=== PATIENT | female | born 1950 | race Caucasian/White ===

== ENCOUNTER 2017-10-06 15:01 | Emergency (ER) | payer MEDICARE, MEDICAID ==
--- NOTE | 2017-10-06 15:07 | ED PDOC ---
Arrival/HPI - General Time Seen by Provider: 10/06/17 15:06 Historian: Patient - History of Present Illness Narrative History of Present Illness (Text): 10/06/17 15:06 67 y/o female, pmh including htn/hyperlipidemia/hypothyroidism/gerd/lower back surgery, nkda, c/o lower back pain and left elbow pain s/p fall about 1 hour ago. Pt. stated that she was getting out of her car, tripped over uneven curb, landed on the left elbow and lower back, walking on the scene, no numbness or tingling, no urinary or bowel incontinence or retention, no flank pain, no hematuria, no night sweat, no rash, no other medical or psychological complaints. Past Medical History - Provider Review Nursing Documentation Reviewed: Yes Family/Social History - Physician Review Nursing Documentation Reviewed: Yes Family/Social History: Unknown Family HX Allergies/Home Meds Allergies/Adverse Reactions: Allergies FISH Allergy (Verified 10/06/17 15:10) SHORTNESS OF BREATH shrimp Allergy (Verified 10/06/17 15:10) SHORTNESS OF BREATH dairy Allergy (Uncoded 10/06/17 15:10) SHORTNESS OF BREATH Home Medications: Home Meds Medication Instructions Recorded Confirmed Aspirin [Ecotrin] 1 tab PO DAILY 10/06/17 10/06/17 Diclofenac Sodium [Voltaren] 1 appl TOP DAILY 10/06/17 10/06/17 Fluticasone Propionate [Flovent 1 puff IH DAILY 10/06/17 10/06/17 Diskus] Hydrocortisone [Procto-Med Hc] 1 appl RC DAILY 10/06/17 10/06/17 Levothyroxine [Synthroid] 1 tab PO DAILY 10/06/17 10/06/17 Metoprolol Succinate [Toprol Xl] 1 tab PO DAILY 10/06/17 10/06/17 Pantoprazole Sodium [Protonix] 1 tab PO DAILY 10/06/17 10/06/17 Simvastatin [Simvastatin] 1 tab PO DAILY 10/06/17 10/06/17 amLODIPine [Norvasc] 1 tab PO DAILY 10/06/17 10/06/17 Review of Systems - Review of Systems Constitutional: absent: Fatigue, Fevers Eyes: absent: Vision Changes ENT: absent: Hearing Changes Respiratory: absent: SOB, Cough Cardiovascular: absent: Chest Pain Gastrointestinal: absent: Abdominal Pain, Nausea, Vomiting Musculoskeletal: Arthralgias, Back Pain, Myalgias. absent: Neck Pain, Joint Swelling Skin: absent: Rash, Pruritis, Skin Lesions Psychiatric: absent: Anxiety, Depression, Suicidal Ideation Physical Exam Vital Signs Reviewed: Yes Vital Signs Temp Pulse Resp BP Pulse Ox 10/06/17 15:18 97.5 F L 73 18 131/70 98 Temperature: Afebrile Blood Pressure: Normal Pulse: Regular Respiratory Rate: Normal Appearance: Positive for: Well-Appearing, Non-Toxic, Comfortable Pain Distress: Mild Mental Status: Positive for: Alert and Oriented X 3 - Systems Exam Head: Present: Atraumatic, Normocephalic Pupils: Present: PERRL Extroacular Muscles: Present: EOMI Conjunctiva: Present: Normal Ears: Present: NORMAL TM, Normal Canal. No: Erythema Mouth: Present: Moist Mucous Membranes Pharnyx: No: ERYTHEMA, TONSILS ENLARGED Nose (External): Present: Atraumatic. No: Abrasion, Contusion, Laceration, Lesions Nose (Internal): Present: Normal Inspection, No Active Bleeding. No: Rhinorrhea , Septal Hematoma, Epistaxis Neck: Present: Normal Range of Motion, Trachea Midline. No: Meningeal Signs, MIDLINE TENDERNESS, Paraspinal Tenderness, Lymphadenopathy Respiratory/Chest: Present: Clear to Auscultation, Good Air Exchange. No: Respiratory Distress, Accessory Muscle Use Cardiovascular: Present: Regular Rate and Rhythm, Normal S1, S2. No: Murmurs Abdomen: Present: Normal Bowel Sounds. No: Tenderness, Distention, Peritoneal Signs Back: Present: Normal Inspection, Other (LS spine: no midline tenderness or step off noted, visible surgical scar non-infected noted on the bialteral paraspinal region, no ecchymosis, no abrasion or laceration, FROM without limitation, sensation intact, motor 5/5, SLR test negative. ). No: CVA Tenderness, Midline Tenderness, Paraspinal Tenderness, Pain with Leg Raise, Decubitus Ulcer Upper Extremity: Present: Normal Inspection, Other (Lt. elbow: no tenderness or swelling, skin intact, no laceration or abrasion, FROM without limitation, sensation intact, motor 5/5, +radial pulse, capillary refill< 2 seconds, neurovascular intact. ). No: Cyanosis, Edema Lower Extremity: Present: Normal Inspection. No: Edema Neurological: Present: GCS=15, CN II-XII Intact, Speech Normal Skin: Present: Warm, Dry, Normal Color. No: Rashes Psychiatric: Present: Alert, Oriented x 3, Normal Insight, Normal Concentration Medical Decision Making ED Course and Treatment: 10/06/17 15:35 -Lt. elbow and LS spine xray -Tylenol -observe and reassess 10/06/17 16:37 -LS spine xray: +degenerative changes, no acute fracture or subluxation. -Lt. elbow: no fracture or dislocation -Pain decreased, walking with normal gait and posture. -Discharge home with ashleigh wrap, acetaminophen, lidoderm patch, follow up with your own pmd and orthopedic within 2 days, return to the ER for any new or worsening signs or symptoms. - RAD Interpretation Radiology Orders: 10/06/17 15:32 ELBOW LEFT 3 VIEWS ROUTINE [RAD] Stat LS SPINE WITH OBL > 18 YRS OLD [RAD] Stat LS spine xray: Lt. elbow xray: Product Tester: Radiologist - Medication Orders Current Medication Orders: Discontinued Medications Acetaminophen (Tylenol 325mg Tab) 650 mg PO STAT STA Stop: 10/06/17 15:33 Last Admin: 10/06/17 16:16 Dose: 650 mg MAR Pain/Vitals Document 10/06/17 16:16 OCS (Rec: 10/06/17 16:17 OCS [id number]) Pain Reassessment Is This A Pain ReAssessment? Yes Sleep Is patient sleeping during reassessment? No Presence of Pain Presence of Pain Yes Location Pain Location Body Site Back Description Constant Intensity 7 Scale Used Numeric Aggravating Factors ADL's - PA / ECG TECHNICIAN / Resident Statement MD/DO has reviewed & agrees with the documentation as recorded. Disposition/Present on Arrival - Present on Arrival Any Indicators Present on Arrival: No History of DVT/PE: No History of Uncontrolled Diabetes: No Urinary Catheter: No History of Decub. Ulcer: No - Disposition Have Diagnosis and Disposition been Completed?: Yes Diagnosis: Accidental fall, Low back pain, Elbow pain, Degenerative joint disease (DJD) of lumbar spine Disposition: HOME/ ROUTINE Disposition Time: 16:40 Patient Plan: Discharge Condition: GOOD Additional Instructions: -Discharge home with ashleigh wrap, acetaminophen, lidoderm patch, follow up with your own pmd and orthopedic within 2 days, return to the ER for any new or worsening signs or symptoms. Prescriptions: Acetaminophen [Pain Relief] 1 tab PO QID PRN #30 tablet PRN Reason: Other Lidocaine 5% [Lidoderm] 1 patch TOP DAILY PRN #30 patch PRN Reason: Other Referrals: Arleen Kearns MD [Primary Care Provider] - Follow up with primary Eze Ward MD [Staff Provider] - [place] up [place] [facility] [place] [facility] [place] - Follow up with primary Forms: WORK NOTE
[2017-10-06 15:10] VITALS: BMI 26.2
[2017-10-06 15:19] VITALS: RESP 18; TEMP 97.5; O2SAT 98
[2017-10-06 16:58] VITALS: BP 148/75; PULSE 76
--- NOTE | 2017-10-07 08:07 | RAD ---
PROCEDURE: Radiographs of the left elbow. HISTORY: fall COMPARISON: No prior. FINDINGS: BONES: No acute fracture or destructive bony lesion identified. JOINTS: Normal. No osteoarthritis. SOFT TISSUES: Normal. JOINT EFFUSION: None. OTHER FINDINGS: None IMPRESSION: Unremarkable radiographs of the left elbow.
--- NOTE | 2017-10-07 08:09 | RAD ---
PROCEDURE: Radiographs of the Lumbar Spine. HISTORY: fall COMPARISON: No prior. FINDINGS: BONES: Grade 1 spondylolisthesis L3-4 and likely L4-5. L3 appears posterior L4 at L4 appears anterior L5 by by limited amount in each case. This appears to be on the basis of facet joint degenerative arthropathy as spondylolysis is not identified in oblique images. Multilevel degenerative spondylosis and facet arthropathy at the mid to inferior lumbar levels. DISC SPACES: Disc height loss is prominent at L4-5 and L5-S1. OTHER FINDINGS: None. IMPRESSION: Grade 1 spondylolisthesis L3-4 and likely L4-5 as well. Further characterization can provided by MRI or CT as clinically warranted.
== END 2017-10-06 16:56 | disposition home or self-care (01) ==
LOC: ED 15:01
DX: M54.5 Low back pain (principal); M25.522 Pain in left elbow; M51.36 Other intervertebral disc degeneration, lumbar region; W01.0XXA Fall on same level from slipping, tripping and stumbling without subsequent striking against object, initial encounter; Y92.480 Sidewalk as the place of occurrence of the external cause